=== PATIENT | female | born 1985 | race Caucasian/White ===

== ENCOUNTER 2017-07-20 18:36 | Emergency (ER) | payer BC ==
[2017-07-20 22:22] LABS: BASOPHIL % 0.4 % (0-2); PLATELET COUNT 187 x10^3mcL (130-400); RED CELL DISTRIBUTION WIDTH 13.9 % (11.5-14.5)
[2017-07-20 22:23] LABS: microscopic required? NO
[2017-07-20 22:55] LABS: UA SPECIFIC GRAVITY <=1.005 (1.005-1.035); urine erythrocyte NEGATIVE (NEGATIVE)
[2017-07-21 00:29] VITALS: BP 124/68
== END 2017-07-21 00:29 | disposition home or self-care (01) ==
LOC: ED 18:36
PROVIDERS: Student in an Organized Health Care Education/Training Program
DX: O20.0 Threatened abortion (principal); Z3A.22 22 weeks gestation of pregnancy
CPT/HCPCS: 36415; Q0092

== ENCOUNTER 2020-06-08 14:18 | Emergency (ER) | payer BC ==
[~2020-06-08] VITALS: Ht 160 cm; Wt 90.4 kg
[2020-06-08 14:23] VITALS: Ht 160 cm; Wt 90.4 kg
[2020-06-08 16:03] LABS: microscopic required? NO
[2020-06-08 16:07] LABS: UA SPECIFIC GRAVITY <=1.005 (1.005-1.035); urine erythrocyte NEGATIVE (NEGATIVE)
[2020-06-08 16:09] LABS: BASOPHIL % 0.2 % (0-2); PLATELET COUNT 161 x10^3mcL (130-400); RED CELL DISTRIBUTION WIDTH 12.5 % (11.5-14.5)
[2020-06-08 19:07] VITALS: BP 123/78
== END 2020-06-08 19:07 | disposition home or self-care (01) ==
LOC: ED 14:18
PROVIDERS: Emergency Medicine
DX: N83.202 Unspecified ovarian cyst, left side (principal); Z90.49 Acquired absence of other specified parts of digestive tract
CPT/HCPCS: Q0092